=== PATIENT | female | born 1960 | race Caucasian/White ===

== ENCOUNTER 2017-09-12 13:39 | Observation (INO) | payer BC ==
[~2017-09-12] VITALS: Ht 170.2 cm; Wt 65.6 kg
[~2017-09-12 13:39] MED LIST: ADVAIR 500/501 DISK IH; AMBIEN10 M1 PO; ASPIR-TRIN325 M1 PO; Ambien PO; BENADRYL ALLERG25 MG PO; CYMBALTA60 MG PO; Coumadin dosing per PO; Coumadin,Jantoven PO; Cymbalta PO; FLEXERIL10 MG PO; KLONOPIN1 MG PO; KlonoPIN PO; LORTAB 5/325; LORTAB 7.5-3251 EACH PO; LOVENOX60 MG/0.6 SC; Motrin PO; NAPROSYN375 MG PO; NAPROSYN500 MG PO; PROMETHAZINE HC25 M1 PO; PROTONIX40 MG PO; REGLAN; RELAFEN750 MG PO; SIMVASTATIN10 MG PO; SIMVASTATIN20 MG PO; TOPAMAX100 MG PO; Tylenol Extra Streng PO; VALIUM5 MG PO
[2017-09-12 14:38] LABS: HEMATOCRIT 40.6 % (36.0-46.0); HEMOGLOBIN 13.5 G/DL (11.9-15.5); MCH 27.9 PG (29.0-34.0); MCHC 33.3 G/DL (30.0-36.0); MCV 83.9 FL (83-99); PLATELET COUNT 250 K/uL (156-360); RBC DIS.WIDTH-CV 12.7 % (11.8-14.6); RBC DIS.WIDTH-SD 38.8 % (39-53); RED BLOOD COUNT 4.84 M/uL (3.80-5.20); WHITE BLOOD COUNT 6.9 K/uL (4.1-10.2)
[2017-09-12 14:47] LABS: CHLORIDE 108 mEq/L (99-109); POTASSIUM 4.2 mEq/L (3.7-5.4); SODIUM 141 mEq/L (136-147)
[2017-09-12 14:48] LABS: GLUCOSE 99 mg/dL (70-99)
[2017-09-12 14:52] LABS: CREATININE 0.8 mg/dL (0.6-1.3); GFR ESTIMATE (CALCULATED) > 59 mL/min/
[2017-09-12 14:53] LABS: UREA NITROGEN (BUN) 17 mg/dL (9-23)
[2017-09-12 14:59] LABS: TROP-I INTERPRETATION NEGATIVE; TROPONIN-I < 0.01 ng/mL (0.0-0.30)
[2017-09-12 18:55] LABS: TROP-I INTERPRETATION NEGATIVE; TROPONIN-I < 0.01 ng/mL (0.0-0.30)
[2017-09-12] MEDS ORDERED: CYCLOBENZAPRINE10 MG PO (19:45)
[2017-09-12] MEDS ORDERED: PANTOPRAZOLE SO40 MG PO (19:46)
[2017-09-12] MEDS ORDERED: TOPIRAMATE100 MG PO (19:47)
[2017-09-12] MEDS ORDERED: ALPRAZOLAM ER2 MG PO (19:49)
[2017-09-12] MEDS ORDERED: CLONAZEPAM1 MG PO (19:49)
[2017-09-12] MEDS ORDERED: DULOXETINE HCL60 MG PO (19:50)
[2017-09-12] MEDS ORDERED: CELECOXIB200 MG PO (19:50)
[2017-09-12] MEDS ORDERED: MONTELUKAST SOD10 MG PO (19:51)
[2017-09-12] MEDS ORDERED: TOPIRAMATE25 MG PO (19:51)
[2017-09-12] MEDS ORDERED: BREO ELLIPTA 21 EACH IH (19:52)
[2017-09-12 22:02] VITALS: BP 120/56
[2017-09-13 03:08] LABS: TROP-I INTERPRETATION NEGATIVE; TROPONIN-I < 0.01 ng/mL (0.0-0.30)
[2017-09-13 03:12] LABS: HDL CHOLESTEROL 33 MG/DL (Desirable>=50); LDL CHOLESTEROL 83 mg/dL (Desirable<100); NON-HDL CHOLESTEROL 156 mg/dL (Desirable<160); TOTAL CHOLESTEROL 189 mg/dL (Desirable<200); TRIGLYCERIDES 363 MG/DL (Normal: <150)
[2017-09-13 04:40] VITALS: BP 78/42
[2017-09-13 07:30] VITALS: BP 92/53
[2017-09-13 12:46] VITALS: BP 101/51
[2017-09-13] MEDS ORDERED: FENOFIBRATE145 M1 PO (17:06)
[2017-09-13] MEDS ORDERED: ATORVASTATIN CA40 MG PO (17:06)
[2017-09-13] MEDS ORDERED: ASPIRIN81 M2 PO (17:07)
[2017-09-13] MEDS ORDERED: PEPCID20 MG PO (17:09)
[2017-09-13 17:37] VITALS: BP 85/48
== END 2017-09-13 17:55 | disposition home or self-care (01) ==
LOC: EME 13:39 → EDOF 20:35 → 5WEST 20:35 → ENRESERV 20:39 → 5WEST 21:53
PROVIDERS: Emergency Medicine; Physician Assistant Medical
DX: R07.89 Other chest pain (principal); R06.02 Shortness of breath; I49.3 Ventricular premature depolarization; E78.5 Hyperlipidemia, unspecified; E78.1 Pure hyperglyceridemia; G89.29 Other chronic pain; M54.9 Dorsalgia, unspecified; J45.909 Unspecified asthma, uncomplicated; K21.9 Gastro-esophageal reflux disease without esophagitis; R53.83 Other fatigue; I95.9 Hypotension, unspecified; Z86.711 Personal history of pulmonary embolism; Z86.718 Personal history of other venous thrombosis and embolism; F41.1 Generalized anxiety disorder; Z87.891 Personal history of nicotine dependence; Z98.1 Arthrodesis status; Z82.49 Family history of ischemic heart disease and other diseases of the circulatory system; Z80.0 Family history of malignant neoplasm of digestive organs; Z80.1 Family history of malignant neoplasm of trachea, bronchus and lung; Z88.0 Allergy status to penicillin
CPT/HCPCS: 71046; 71275; 80048; 80061; 84484; 85027; 93005; 93306; 94640; 99281; 99285; G0378; J7030; J7040

== ENCOUNTER 2017-12-10 21:39 | Emergency (ER) | payer BC ==
[~2017-12-10] VITALS: Ht 170.2 cm; Wt 61.7 kg
[~2017-12-10 21:39] MED LIST changes: +ALPRAZOLAM ER2 MG PO; +ASPIRIN81 M2 PO; +ATORVASTATIN CA40 MG PO; +BREO ELLIPTA 21 EACH IH; +CELECOXIB200 MG PO; +CLONAZEPAM1 MG PO; +CYCLOBENZAPRINE10 MG PO; +DULOXETINE HCL60 MG PO; +FENOFIBRATE145 M1 PO; +MONTELUKAST SOD10 MG PO; +PANTOPRAZOLE SO40 MG PO; +PEPCID20 MG PO; +TOPIRAMATE100 MG PO; +TOPIRAMATE25 MG PO
[2017-12-10 22:22] LABS: HEMATOCRIT 37.8 % (36.0-46.0); HEMOGLOBIN 12.6 G/DL (11.9-15.5); MCH 28.1 PG (29.0-34.0); MCHC 33.3 G/DL (30.0-36.0); MCV 84.4 FL (83-99); PLATELET COUNT 406 K/uL (156-360); RBC DIS.WIDTH-CV 13.4 % (11.8-14.6); RBC DIS.WIDTH-SD 41.7 % (39-53); RED BLOOD COUNT 4.48 M/uL (3.80-5.20); WHITE BLOOD COUNT 14.5 K/uL (4.1-10.2)
[2017-12-10 22:34] LABS: CHLORIDE 106 mEq/L (99-109); POTASSIUM 4.2 mEq/L (3.7-5.4); SODIUM 141 mEq/L (136-147)
[2017-12-10 22:35] LABS: GLUCOSE 104 mg/dL (70-99)
[2017-12-10 22:39] LABS: CREATININE 0.8 mg/dL (0.6-1.3); GFR ESTIMATE (CALCULATED) > 59 mL/min/
[2017-12-10 22:40] LABS: UREA NITROGEN (BUN) 23 mg/dL (9-23)
[2017-12-10 22:42] LABS: TROP-I INTERPRETATION NEGATIVE; TROPONIN-I < 0.01 ng/mL (0.0-0.30)
[2017-12-10 23:59] LABS: D-DIMER ELISA < 150.00 ng/mLDDU (<230)
[2017-12-11 00:27] VITALS: BP 108/67
== END 2017-12-11 00:28 | disposition home or self-care (01) ==
LOC: EME 21:39
PROVIDERS: Physician Assistant
DX: J45.909 Unspecified asthma, uncomplicated (principal); Z86.711 Personal history of pulmonary embolism; F41.9 Anxiety disorder, unspecified; F32.9 Major depressive disorder, single episode, unspecified; G43.909 Migraine, unspecified, not intractable, without status migrainosus; Z87.891 Personal history of nicotine dependence; Z98.1 Arthrodesis status; Z88.0 Allergy status to penicillin
CPT/HCPCS: 71046; 80048; 84484; 85027; 85379; 93005; 94640; 99281; 99284

== ENCOUNTER 2018-02-11 14:22 | Inpatient (IN) | payer BC ==
[~2018-02-11] VITALS: Ht 170.2 cm; Wt 62.0 kg
[2018-02-11 15:27] LABS: BASOPHIL (%) 0.6 % (0-1); BASOPHIL COUNT 0.1 K/uL (0-0.1); EOSINOPHIL (%) 2.1 % (0-5); EOSINOPHIL COUNT 0.3 K/uL (0-0.3); HEMATOCRIT 28.7 % (36.0-46.0); HEMOGLOBIN 9.2 G/DL (11.9-15.5); IMMATURE GRANULOCYTE (%) 0.4 % (0.0-0.7); LYMPHOCYTE (%) 23.6 % (15-42); LYMPHOCYTE COUNT 2.9 K/uL (1.0-2.8); MCH 28.1 PG (29.0-34.0); MCHC 32.1 G/DL (30.0-36.0); MCV 87.8 FL (83-99); MONOCYTE COUNT 0.6 K/uL (0-0.8); NEUTROPHIL (%) 68.3 % (45-76); NEUTROPHIL COUNT 8.4 K/uL (1.8-6.4); PLATELET COUNT 327 K/uL (156-360); RBC DIS.WIDTH-CV 13.2 % (11.8-14.6); RBC DIS.WIDTH-SD 42.7 % (39-53); RED BLOOD COUNT 3.27 M/uL (3.80-5.20); WHITE BLOOD COUNT 12.4 K/uL (4.1-10.2)
[2018-02-11 15:34] LABS: ALBUMIN 3.9 g/dL (3.2-4.8)
[2018-02-11 15:35] LABS: CHLORIDE 112 mEq/L (99-109); POTASSIUM 3.8 mEq/L (3.7-5.4); SODIUM 144 mEq/L (136-147)
[2018-02-11 15:37] LABS: GLUCOSE 106 mg/dL (70-99); TOTAL PROTEIN 6.3 g/dL (6.4-8.3)
[2018-02-11 15:39] LABS: TOTAL BILIRUBIN 0.7 mg/dL (0.0-1.0)
[2018-02-11 15:40] LABS: ALKALINE PHOSPHATASE 43 IU/L (3-129)
[2018-02-11 15:41] LABS: CREATININE 0.8 mg/dL (0.6-1.3); GFR ESTIMATE (CALCULATED) > 59 mL/min/
[2018-02-11 15:42] LABS: AST (GOT) 63 IU/L (2-34); UREA NITROGEN (BUN) 19 mg/dL (9-23)
[2018-02-11 15:44] LABS: ALT (GPT) 59 IU/L (3-49)
[2018-02-11 16:54] LABS: APPEARANCE CLEAR ((CLEAR)); BILIRUBIN NEGATIVE; BLOOD SMALL; COLOR YELLOW ((YELLOW)); GLUCOSE (STRIP) NEGATIVE; KETONES NEGATIVE; LEUKOCYTES TRACE; NITRITE POSITIVE; PROTEIN (STRIP) NEGATIVE; SPECIFIC GRAVITY 1.008 (1.000-1.030); UROBILINOGEN 0.2 MG/DL (0.2-1.0)
[2018-02-11 16:58] LABS: BACTERIA RARE /HPF; EPITHELIAL CELLS NONE SEEN /HPF; MUCUS NONE SEEN /LPF; RED BLOOD CELLS 0-5 /HPF (0-5); UCUL ADDED? NO; WHITE BLOOD CELLS 0-5 /HPF (0-5)
[2018-02-11] MEDS ORDERED: TRICOR145 MG PO (21:08)
[2018-02-11] MEDS ORDERED: LO-DOSE ASPIRIN81 M1 PO (21:09)
[2018-02-11] MEDS ORDERED: LIPITOR40 MG PO (21:09)
[2018-02-11] MEDS ORDERED: KLONOPIN1 MG PO (21:11)
[2018-02-11] MEDS ORDERED: CLARITIN,ALAVAR10 MG PO (21:13)
[2018-02-11] MEDS ORDERED: NORFLEX100 MG PO (21:14)
[2018-02-11 22:06] VITALS: BP 89/51
[2018-02-12 04:00] VITALS: BP 96/50
[2018-02-12 05:18] LABS: HEMATOCRIT 29.8 % (36.0-46.0); HEMOGLOBIN 9.4 G/DL (11.9-15.5); MCH 27.7 PG (29.0-34.0); MCHC 31.5 G/DL (30.0-36.0); MCV 87.9 FL (83-99); PLATELET COUNT 256 K/uL (156-360); RBC DIS.WIDTH-CV 13.3 % (11.8-14.6); RBC DIS.WIDTH-SD 43.1 % (39-53); RED BLOOD COUNT 3.39 M/uL (3.80-5.20)
[2018-02-12 05:46] LABS: CHLORIDE 114 MEQ/L (99-109); CREATININE 0.6 MG/DL (0.6-1.3); GFR ESTIMATE (CALCULATED) > 59 mL/min/; GLUCOSE 142 mg/dL (70-99); POTASSIUM 4.2 MEQ/L (3.7-5.4); SODIUM 143 MEQ/L (136-147); UREA NITROGEN (BUN) 18 mg/dL (9-23)
[2018-02-12 07:45] VITALS: BP 86/44
[2018-02-12 07:57] VITALS: BP 89/50
[2018-02-12 11:52] VITALS: BP 103/52
[2018-02-12 15:21] VITALS: BP 114/56
[2018-02-12 19:32] VITALS: BP 112/50
[2018-02-13] VITALS: BP 103/53
[2018-02-13 03:59] VITALS: BP 104/55
[2018-02-13 05:53] LABS: ABSOLUTE RETICULOCYTE CT. 0.06 M/uL (0.02-0.08); HEMATOCRIT 31.9 % (36.0-46.0); HEMOGLOBIN 9.9 G/DL (11.9-15.5); IMM.RETIC FRACTION 11.2 % (3-19); MCH 27.7 PG (29.0-34.0); MCV 89.4 FL (83-99); PLATELET COUNT 277 K/uL (156-360); RBC DIS.WIDTH-CV 13.4 % (11.8-14.6); RBC DIS.WIDTH-SD 44.1 % (39-53); RED BLOOD COUNT 3.57 M/uL (3.80-5.20); RETIC HGB EQUIVALENT 29.8 (28-36); RETICULOCYTE COUNT 1.7 % (0.5-1.8); WHITE BLOOD COUNT 10.8 K/uL (4.1-10.2)
[2018-02-13 06:17] LABS: ALBUMIN 3.5 G/DL (3.2-4.8); ALKALINE PHOSPHATASE 34 IU/L (3-129); ALT (GPT) 37 IU/L (3-49); AST (GOT) 26 IU/L (2-34); CHLORIDE 114 MEQ/L (99-109); CREATININE 0.8 MG/DL (0.6-1.3); DIRECT BILIRUBIN 0.1 mg/dL (0.0-0.3); GFR ESTIMATE (CALCULATED) > 59 mL/min/; GLUCOSE 131 mg/dL (70-99); IRON 48 MCG/DL (35-150); SODIUM 145 MEQ/L (136-147); TOTAL BILIRUBIN 0.2 MG/DL (0.0-1.0); TOTAL PROTEIN 5.7 G/DL (6.4-8.3); TRANSFERRIN (TIBC) 275.5 mg/dL (215-380); TRANSFERRIN SATUR. 17 % (20-55); UREA NITROGEN (BUN) 18 mg/dL (9-23)
[2018-02-13 07:13] VITALS: BP 120/65
[2018-02-13 08:48] LABS: FERRITIN 58 NG/ML (10-291)
[2018-02-13 16:08] VITALS: BP 106/53
[2018-02-13 22:02] VITALS: BP 137/61
[2018-02-14] VITALS: BP 112/52
[2018-02-14 07:24] VITALS: BP 101/52
[2018-02-14 15:47] VITALS: BP 109/55
[2018-02-15 01:04] VITALS: BP 108/53
[2018-02-15] MEDS ORDERED: CEFDINIR300 MG PO (06:30)
[2018-02-15] MEDS ORDERED: PREDNISONE20 MG PO (06:31)
[2018-02-15 07:26] VITALS: BP 124/59
== END 2018-02-15 13:37 | disposition home or self-care (01) | DRG 194 ==
LOC: EME 14:22 → EDOF 20:33 → 5SOUTH 20:33 → ENRESERV 02-13 → 5EAST 02-13 21:57
PROVIDERS: Emergency Medicine; Hospitalist; Internal Medicine
DX: J18.9 Pneumonia, unspecified organism (principal); J45.41 Moderate persistent asthma with (acute) exacerbation; N39.0 Urinary tract infection, site not specified; B96.20 Unspecified Escherichia coli [E. coli] as the cause of diseases classified elsewhere; Z16.24 Resistance to multiple antibiotics; I95.9 Hypotension, unspecified; R74.0 Nonspecific elevation of levels of transaminase and lactic acid dehydrogenase [LDH]; D64.9 Anemia, unspecified; E78.5 Hyperlipidemia, unspecified; K21.9 Gastro-esophageal reflux disease without esophagitis; G43.909 Migraine, unspecified, not intractable, without status migrainosus; G89.29 Other chronic pain; M54.5 Low back pain; F41.1 Generalized anxiety disorder; F32.9 Major depressive disorder, single episode, unspecified; Z86.718 Personal history of other venous thrombosis and embolism; Z86.711 Personal history of pulmonary embolism; Z98.1 Arthrodesis status; Z87.891 Personal history of nicotine dependence; Z79.82 Long term (current) use of aspirin
CPT/HCPCS: 71275; 80048; 80053; 80076; 81003; 82607; 82728; 82746; 83540; 83605; 84466; 85025; 85027; 85046; 87040; 87070; 87077; 87086; 87186; 87205; 87449; 94640; 94760; 94799; 99281; 99285; J0456; J0696; J1644; J2920; J7030